=== PATIENT | male | born 1985 | race Caucasian/White ===

== ENCOUNTER 2017-06-17 08:38 | Outpatient (CLI) | payer OTHER ==
[~2017-06-17 08:38] MED LIST: GADOBUTROL 15 MMOL/15 ML VIAL ONE
[2017-06-17] MEDS ORDERED: GADOBUTROL 15 MMOL/15 ML VIAL IVP ONE (09:33)
--- NOTE | 2017-06-17 10:49 | MRI Report ---
MRI LUMBAR SPINE WITHOUT AND WITH CONTRAST EXAM DATE: 06/17/2017. INDICATION: 32-year-old male. Chronic radicular lumbosacral back pain. History of L4-L5 back pain sin ce 2015. Associated symptoms of S1 radiculopathy improved with physical therapy but not completely re solved. MRI has been requested to evaluate for source of radiculopathy. COMPARISON: None. TECHNIQUE: 1. Sagittal STIR, T1 and T2. 2. Axial T1 and T2. 3. 11 cc IV Gadavist T1 axial and fat-saturated T1 sagittal. FINDINGS: There appear to be 5 [id number], lumbar-type vertebrae. There is straightening of the lumbar ali gnment with very minimal lumbar lordosis. Alignment is otherwise unremarkable. Degenerative changes are demonstrated in the L5-S1 disk. Otherwise, the lumbar disks appear relativel y well hydrated. The lumbar disk space heights are maintained throughout. The marrow signal intensity is unremarkable. The conus terminates in an appropriate fashion above the L1-L2 disk level. There is no abnormal thick ening or lipomatous change of the filum. Axial Images: L1-L2: Normal. L2-L3: Normal. L3-L4: There appears to be a tiny, left intraforaminal protrusion with associated, minor, intraforami nal osteophyte. Minimal left foraminal stenosis. No spinal canal or right foraminal narrowing. L4-L5: Minor, circumferential disk bulge with associated minor, intraforaminal disk displacement bila terally. No spinal stenosis. Minimal foraminal narrowing. L5-S1: Tiny left paracentral extrusion, projecting posteriorly for about 2.5 mm into the ventral epid ural fat. No associated subarticular zone stenosis. No contact with traversing left S1 nerve root. Th e spinal canal and right subarticular zone are widely patent. No foraminal stenosis. Degenerative fac et arthrosis without associated bony hypertrophy. Postcontrast sequences show no evidence of abnormal enhancement. IMPRESSION: 1. Mild degenerative disk disease in lower lumbar spine as described. Findings include a small left-s ided extrusion at L5-S1. No associated subarticular zone stenosis and no compromise of traversing lef t S1 nerve root. 2. Otherwise unremarkable lumbar spine MRI. No potential etiology for S1 radiculopathy has been ident ified. Referring Provider Line: [phone] SITE ID: [id number]
== END 2017-06-17 08:39 | disposition home or self-care (01) ==
LOC: DI 08:38
PROVIDERS: ATTEND Student in an Organized Health Care Education/Training Program
DX: M51.27 Other intervertebral disc displacement, lumbosacral region (principal); M51.26 Other intervertebral disc displacement, lumbar region; M51.37 Other intervertebral disc degeneration, lumbosacral region
CPT/HCPCS: 72158; A9585

== ENCOUNTER 2018-08-06 23:11 | Emergency (ER) | payer OTHER ==
--- NOTE | 2018-08-06 23:34 | ED Physician Documentation ---
PD HPI NVD - Stated complaint Stated Complaint: SHAKING/VOMITING - Chief complaint Chief Complaint: Abd Pain - History obtained from History obtained from: Patient - History of Present Illness Timing - onset: Enter time (19:00) Timing - details: Abrupt onset Associated symptoms: Fever (tactile, subjective) Improved by: No: Eating, Laying still, Vomiting, BM, Position, Meds Worsened by: No: Eating, Moving, Breathing, Position, Palpation Similar symptoms before: Diagnosis (similar to previous episode of influenza) Recently seen: Not recently seen - Additonal information Additional information: c/o generalized body aches, shaking chills, nausea, vomiting. symptoms started 7 PM tonight and gradually worsened. subjective fever and says he felt hot to touch. took alleve [employer]. Review of Systems Constitutional: reports: Fever (subjective, tactile), Chills, Myalgias, Fatigue, Sweats Eyes: reports: Reviewed and negative Ears: reports: Reviewed and negative Nose: reports: Reviewed and negative Throat: reports: Reviewed and negative Cardiac: reports: Reviewed and negative Respiratory: reports: Reviewed and negative GI: reports: Nausea, Vomiting. denies: Abdominal Pain : denies: Dysuria Skin: reports: Reviewed and negative Musculoskeletal: reports: Reviewed and negative Neurologic: reports: Generalized weakness. denies: Focal weakness, Numbness PD PAST MEDICAL HISTORY - Past Medical History Past Medical History: No - Past Surgical History Past Surgical History: Yes HEENT: Rhinoplasty, Other - Present Medications Home Medications: Ambulatory Orders Medication Instructions Recorded Confirmed Ondansetron Odt [Zofran] 4 mg TL Q6H PRN #10 tablet 08/07/18 - Allergies Allergies/Adverse Reactions: Allergies Allergy/AdvReac Type Severity Reaction Status Date / Time No Known Drug Allergies Allergy Verified 08/06/18 23:19 - Social History Does the pt smoke?: No Smoking Status: Never smoker Does the pt drink ETOH?: No Does the pt have substance abuse?: No - Immunizations Immunizations are current?: Yes - POLST Patient has POLST: No PD ED PE NORMAL - Vitals Vital signs reviewed: Yes - General General: Alert and oriented X 3, No acute distress, Well developed/nourished - HEENT HEENT: Moist mucous membranes, Pharynx benign - Neck Neck: Supple, no meningeal sign - Cardiac Cardiac: RRR, No murmur, No gallop, No rub - Respiratory Respiratory: No respiratory distress, Clear bilaterally - Abdomen Abdomen: Soft, Non tender - Back Back: No CVA TTP - Derm Derm: Normal color, Warm and dry, No rash Results - Vitals Vitals: Oxygen O2 Source Room air - Labs Labs: Laboratory Tests 08/06/18 08/06/18 08/07/18 23:35 23:35 00:48 WBC 6.3 RBC 5.18 Hgb 15.6 Hct 45.1 MCV 87.1 MCH 30.0 MCHC 34.5 RDW 13.7 Plt Count 217 MPV 9.1 Neut # (Auto) 4.5 Lymph # (Auto) 0.9 L [place] # (Auto) 0.6 Eos # (Auto) 0.1 Baso # (Auto) 0.1 Absolute Nucleated RBC 0.00 Nucleated RBC % 0.0 Sodium 138 Potassium 3.8 Chloride 101 Carbon Dioxide 27 Anion Gap 10.0 BUN 18 Creatinine 0.9 Estimated GFR (MDRD) 97 Glucose 102 H Calcium 9.8 Total Bilirubin 0.6 AST 45 H ALT 53 Alkaline Phosphatase 61 Total Protein 8.2 Albumin 4.9 Globulin 3.3 Albumin/Globulin Ratio 1.5 Lipase 36 Influenza A (Rapid) Negative Influenza B (Rapid) Negative PD MEDICAL DECISION MAKING - ED course Complexity details: reviewed results, re-evaluated patient, considered differential, d/w patient Departure - Departure Disposition: 01 Home, Self Care Clinical Impression: Vomiting, Malaise and fatigue Condition: Good Instructions: ED Viral Syndrome, ED Nausea Vomiting Follow-Up: RENEE Carreno [Provider Group] Prescriptions: Ondansetron Odt [Zofran] 4 mg TL Q6H PRN #10 tablet PRN Reason: Nausea / Vomiting Forms: Activity restrictions Discharge Date/Time: 08/07/18 01:50
[2018-08-06] MEDS ORDERED: SODIUM CHLORIDE 0.9% 1,000 ML IV ONE (23:36)
[2018-08-06] MEDS ORDERED: ONDANSETRON 4 MG/2 ML VIAL IVP STA (23:37)
[2018-08-06 23:43] LABS: BASOPHILS # (AUTO) 0.1 10^3/uL (0.0-0.1); BASOPHILS % (AUTO) 0.9 %; EOSINOPHILS # (AUTO) 0.1 10^3/uL (0.0-0.7); EOSINOPHILS % (AUTO) 2.1 %; HGB - HEMOGLOBIN 15.6 g/dL (14.0-18.0); LYMPHOCYTES # (AUTO) 0.9 10^3/uL (1.5-3.5); LYMPHOCYTES % (AUTO) 14.5 %; MEAN CORPUSCULAR HGB CONC 34.5 g/dL (32.0-36.0); MEAN CORPUSCULAR VOLUME 87.1 fL (80.0-94.0); MEAN PLATELET VOLUME 9.1 fL (7.4-11.4); MONOCYTES # (AUTO) 0.6 10^3/uL (0.0-1.0); MONOCYTES % (AUTO) 9.9 %; NEUTROPHILS # (AUTO) 4.5 10^3/uL (1.5-6.6); NEUTROPHILS % (AUTO) 72.6 %; PLT - PLATELET COUNT 217 10^3/uL (130-450); RED BLOOD COUNT 5.18 10^6/uL (4.70-6.10); RED CELL DISTRIBUTION WIDTH 13.7 % (12.0-15.0); WHITE BLOOD COUNT 6.3 x10^3/uL (4.8-10.8)
[2018-08-06 23:54] LABS: ALBUMIN 4.9 g/dL (3.2-5.5); ALBUMIN/GLOBULIN RATIO 1.5 (1.0-2.2); BILIRUBIN,TOTAL 0.6 mg/dL (0.2-1.0); CALCIUM 9.8 mg/dL (8.5-10.3); CREATININE 0.9 mg/dL (0.6-1.2); TOTAL PROTEIN 8.2 g/dL (6.7-8.2)
[2018-08-07] MEDS ORDERED: ONDANSETRON ODT 4 MG Prepack 2 TL STA (01:31)
[2018-08-07 01:51] VITALS: BP 128/76
== END 2018-08-07 01:50 | disposition home or self-care (01) ==
LOC: ED 23:11
DX: R11.2 Nausea with vomiting, unspecified (principal); R53.81 Other malaise; R53.83 Other fatigue
CPT/HCPCS: 36415; 80053; 83690; 85025; 87275; 87276; 96361; 96374; 99283; 99284

== ENCOUNTER 2021-08-24 12:20 | Emergency (ER) | payer OTHER ==
[2021-08-24] MEDS ORDERED: LIDOCAINE VISCOUS 2% 15 ML UDC MM STA (13:16)
[2021-08-24] MEDS ORDERED: PANTOPRAZOLE 40 MG TABLET PO STA (13:16)
--- NOTE | 2021-08-24 13:18 | ED Physician Documentation ---
History of Present Illness - Stated complaint Stated Complaint: HEART BURN,VOMITING W/BLOOD - Chief complaint Chief Complaint: Abd Pain - Additonal information Additional information: 36-year-old male presents emergency department for evaluation of worsening acid reflux. States that the symptoms began rather mildly about a month ago. He is often burp have a burning sensation in his mouth and throat. Symptoms are typically well managed with Tums but over the last month they have come with increasing frequency and now pain. He developed some vomiting this afternoon with blood-tinged sputum. He did a Google search and was concerned that this could be due to coronary artery disease. He is unable to follow-up with PCP and [facility] over the weekend. No history of hypertension or diabetes. Non-smoker. Rare alcohol use. Denies melena hematochezia Review of Systems Constitutional: denies: Fever, Chills Nose: reports: Reviewed and negative Throat: reports: Reviewed and negative Cardiac: reports: Reviewed and negative Respiratory: reports: Reviewed and negative GI: reports: Nausea, Vomiting : reports: Reviewed and negative Skin: reports: Reviewed and negative PD PAST MEDICAL HISTORY - Past Medical History Past Medical History: Yes Cardiovascular: None Respiratory: None Neuro: None Endocrine/Autoimmune: None GI: None : None HEENT: None Psych: None Musculoskeletal: None Derm: None - Past Surgical History Past Surgical History: Yes HEENT: Rhinoplasty, Other - Present Medications Home Medications: Ambulatory Orders Medication Instructions Recorded Confirmed Omeprazole 40 mg PO DAILY #30 cap 08/24/21 - Allergies Allergies/Adverse Reactions: Allergies Allergy/AdvReac Type Severity Reaction Status Date / Time No Known Drug Allergies Allergy Verified 08/24/21 12:32 - Social History Does the pt smoke?: No Smoking Status: Never smoker Does the pt drink ETOH?: Yes Does the pt have substance abuse?: No - Immunizations Immunizations are current?: Yes - POLST Patient has POLST: No PD ED PE NORMAL - General General: Alert and oriented X 3, No acute distress - HEENT HEENT: Atraumatic, Ears normal - Neck Neck: Supple, no meningeal sign, No adenopathy - Cardiac Cardiac: RRR, No murmur - Respiratory Respiratory: No respiratory distress - Abdomen Abdomen: Normal bowel sounds, Soft, Non tender - Rectal Rectal: Deferred - Back Back: No CVA TTP - Derm Derm: Normal color, Warm and dry Results - Vitals Vitals: Vital Signs - 24 hr 08/24/21 08/24/21 12:33 13:50 Temperature 36.8 C Heart Rate 96 59 L Respiratory 16 20 Rate Blood Pressure 121/73 127/86 H O2 Saturation 99 96 Oxygen O2 Source Room air - EKG (time done) 1239 Rate: Rate (enter#) (73) Rhythm: NSR Covert: Normal Intervals: Normal [place]. No: Prolonged QT QRS: Normal Ischemia: Normal ST segments Compare to prior EKG: Old EKG unavailable Computer interpretation: Agree with computer - Labs Labs: Laboratory Tests 08/24/21 08/24/21 08/24/21 13:23 13:23 13:23 WBC 5.4 RBC 5.26 Hgb 15.6 Hct 47.6 MCV 90.5 MCH 29.7 MCHC 32.8 RDW 13.8 Plt Count 271 MPV 10.4 Neut # (Auto) 2.8 Lymph # (Auto) 1.8 [place] # (Auto) 0.6 Eos # (Auto) 0.1 Baso # (Auto) 0.0 Absolute Nucleated RBC 0.00 Nucleated RBC % 0.0 Sodium 140 Potassium 4.0 Chloride 104 Carbon Dioxide 26 Anion Gap 10.0 BUN 23 H Creatinine 1.0 Estimated GFR (MDRD) 84 L Glucose 95 Calcium 9.4 Troponin I High Sens 5.1 PD MEDICAL DECISION MAKING - ED course Complexity details: reviewed results, re-evaluated patient, considered differential, d/w patient ED course: 36-year-old male presents emergency department for evaluation of worsening acid reflux over the last month that ultimately resulted in vomiting today. He was concerned that he could have coronary artery disease manifesting as acid reflux. Screening EKG was nonischemic. Screening labs including blood count electrolytes high-sensitivity troponin are also negative. Patient was given a dose of Maalox/lidocaine as well as Protonix here in the emergency department with marked improvement in symptoms. He is recommended to take omeprazole daily at home. Follow-up with [facility] as he may benefit from outpatient EGD. Otherwise emergent return precautions discussed Departure - Departure Disposition: 01 Home, Self Care Clinical Impression: GERD (gastroesophageal reflux disease) Qualifiers: Esophagitis presence: esophagitis presence not specified Qualified Code(s): K21.9 - Gastro-esophageal reflux disease without esophagitis Condition: Stable Record reviewed to determine appropriate education?: Yes Instructions: ED GERD Ch Prescriptions: Omeprazole 40 mg PO DAILY #30 cap Comments: Peter you are seen today in the emergency department for worsening acid reflux. Its not uncommon to develop this as we approach our 40s. I do recommend that you avoid spicy foods. Avoid eating 2 to 3 hours before bedtime at night. In order to help reduce your symptoms begin taking the omeprazole daily as directed. However [facility] may want to make a referral for you to gastroenterology to have an EGD completed. Otherwise today in the emergency department your screening EKG, blood count electrolytes and troponin were all normal. If at any point you develop uncontrolled vomiting, have a black or maroon/bloody stools then you should return immediately to the ER for a second evaluation.
[2021-08-24] MEDS ORDERED: MAG HYDROX/AL HYDROX/SIMETH 30 ML UDC PO STA (13:21)
[2021-08-24 13:28] LABS: BASOPHILS % (AUTO) 0.6 %; EOSINOPHILS # (AUTO) 0.1 10^3/uL (0.0-0.7); EOSINOPHILS % (AUTO) 2.6 %; HCT - HEMATOCRIT 47.6 % (42.0-52.0); HGB - HEMOGLOBIN 15.6 g/dL (14.0-18.0); LYMPHOCYTES # (AUTO) 1.8 10^3/uL (1.5-3.5); LYMPHOCYTES % (AUTO) 33.5 %; MEAN CORPUSCULAR HEMOGLOBIN 29.7 pg (27.0-31.0); MEAN CORPUSCULAR HGB CONC 32.8 g/dL (32.0-36.0); MEAN CORPUSCULAR VOLUME 90.5 fL (80.0-94.0); MEAN PLATELET VOLUME 10.4 fL (7.4-11.4); MONOCYTES # (AUTO) 0.6 10^3/uL (0.0-1.0); MONOCYTES % (AUTO) 10.4 %; NEUTROPHILS # (AUTO) 2.8 10^3/uL (1.5-6.6); NEUTROPHILS % (AUTO) 52.7 %; PLT - PLATELET COUNT 271 10^3/uL (130-450); RED BLOOD COUNT 5.26 10^6/uL (4.70-6.10); RED CELL DISTRIBUTION WIDTH 13.8 % (12.0-15.0); WHITE BLOOD COUNT 5.4 x10^3/uL (4.8-10.8)
[2021-08-24 13:39] LABS: CALCIUM 9.4 mg/dL (8.5-10.3)
[2021-08-24 14:10] VITALS: BP 126/80
== END 2021-08-24 14:08 | disposition home or self-care (01) ==
LOC: ED 12:20
DX: K21.9 Gastro-esophageal reflux disease without esophagitis (principal)
CPT/HCPCS: 36415; 80048; 84484; 85025; 93005; 99282; 99283; A9270